=== PATIENT | male | born 1970 | race Caucasian/White ===

== ENCOUNTER 2016-05-20 16:14 | Emergency (ER) | payer OTHER ==
[~2016-05-20] VITALS: Ht 185.4 cm; Wt 115.7 kg
[2016-05-20] MEDS ORDERED: KETOROLAC 15 MG/ML VIAL. IV ONE (17:00)
[2016-05-20] MEDS ORDERED: CYCLOBENZAPRINE 10 MG TABLET. PO ONE (17:00)
[2016-05-20] MEDS ORDERED: CYCL5TAB PO (17:05)
--- NOTE | 2016-05-20 17:05 | PHYS DOC ---
Past Medical History Past Medical History: No Pertinent History Past Surgical History: No Surgical History Alcohol Use: Rarely Drug Use: None Adult General Chief Complaint Chief Complaint: CHEST PAIN-NON CARDIAC NATURE HPI HPI Patient is a 46 year old male who presents with right chest wall pain after trying to lift someone while playing. He states he felt a large spasm and achy pain to his right anterior chest. This dropped into his knees, so he called EMS. He has become asymptomatic during transport. States his pain is elicited with use of his right upper extremity or pectoralis muscles. He denies dyspnea, palpitations, diaphoresis, nausea or vomiting, abdominal pain, fever or chills. Review of Systems Review of Systems Constitutional: Denies fever or chills [] Eyes: Denies change in visual acuity, redness, or eye pain [] HENT: Denies nasal congestion or sore throat [] Respiratory: Denies cough or shortness of breath [] Cardiovascular: No additional information not addressed in HPI [] GI: Denies abdominal pain, nausea, vomiting, bloody stools or diarrhea [] : Denies dysuria or hematuria [] Musculoskeletal: Denies back pain [] Integument: Denies rash or skin lesions [] Neurologic: Denies headache, focal weakness or sensory changes [] Endocrine: Denies polyuria or polydipsia [] Current Medications Current Medications Current Medications Medications (Trade) Dose Ordered Sig/[facility] Start Time Stop Time Status Last Admin Dose Admin Cyclobenzaprine HCl (Flexeril) 5 mg 1X ONCE 05/20/16 17:00 05/20/16 17:01 DC 05/20/16 16:56 5 MG Ketorolac Tromethamine (Toradol) 15 mg 1X ONCE 05/20/16 17:00 05/20/16 17:01 DC 05/20/16 16:56 15 MG Allergies Allergies Allergies Coded Allergies Type Severity Reaction Last Updated Verified No Known Drug Allergies 11/08/15 No Physical Exam Physical Exam Constitutional: Well developed, well nourished, no acute distress, non-toxic appearance. [] HENT: Normocephalic, atraumatic, bilateral external ears normal, oropharynx moist, no oral exudates, nose normal. [] Eyes: PERRLA, EOMI. [] Neck: Normal range of motion, supple. [] Cardiovascular:Heart rate regular rhythm [] Lungs & Thorax: Bilateral breath sounds clear to auscultation. Has slight chest wall tenderness along right upper chest with no palpable or visual abnormality [] Abdomen: Bowel sounds normal, soft, no tenderness. [] Skin: Warm, dry, no erythema, no rash. [] Back: No tenderness, no CVA tenderness. [] Extremities: No tenderness, ROM intact, no edema. [] Neurologic: Alert and oriented X 3, normal motor function, normal sensory function, no focal deficits noted. [] Psychologic: Affect normal, judgement normal, mood normal. [] Current Patient Data Vital Signs Vital Signs Date Time Temp Pulse Resp B/P Pulse Ox O2 Delivery O2 Flow Rate FiO2 05/20/16 17:18 80 20 135/79 98 Room Air 05/20/16 16:21 98.2 98.2 EKG EKG EKG as interpreted by me as normal sinus rhythm, rate 90, no ST-T changes, normal intervals, PAC Course & Med Decision Making Course & Med Decision Making Symptoms consistent with musculoskeletal injury. Discussed symptomatic care. Return precautions given. He understands and agrees with plan. Dragon Disclaimer Dragon Disclaimer This electronic medical record was generated, in whole or in part, using a voice recognition dictation system. Departure Departure Impression: Primary Impression: Chest wall muscle strain Disposition: HOME, SELF-CARE Condition: STABLE Referrals: NO PCP (PCP) Patient Instructions: Muscle Strain, [id number] Additional Instructions: Take Tylenol or ibuprofen as needed for moderate pain. Take cyclobenzaprine as needed for severe pain. Do not drink, drive or operate heavy machinery after taking cyclobenzaprine as it may make you sleepy. Follow-up with your primary care doctor. Return for any concerns. Scripts Cyclobenzaprine Hcl 5 Mg Tablet1 Tab PO TID PRN MUSCLE SPASMS #10 TAB Prov:Patrick LOMBARDI MD 05/20/16 Problem Qualifiers Primary Impression: Chest wall muscle strain Encounter type: initial encounter Qualified Code: S29.011A - Strain of muscle and tendon of front wall of thorax, initial encounter Patrick LOMBARDI MD May 20, 2016 17:05
[2016-05-20 17:18] VITALS: BP 135/79
--- NOTE | 2016-05-21 06:24 | EKG ---
[facility] [address] [place] [address] Test Date: 2016-05-20 Test Time: 16:17:05 Pat Name: BARRY PEREIRA Department: Room: Gender: M Mri Ct Tech: : 1970 Requested By: Patrick LOMBARDI Order Number: [id number] Reading MD: Measurements Intervals [place] Rate: 90 P: 37 TX: 168 QRS: 31 QRSD: 86 T: 26 QT: 346 QTc: 427 Interpretive Statements SINUS RHYTHM ATRIAL PREMATURE COMPLEX(ES) RI6.01 Unconfirmed report No previous ECG available for comparison
== END 2016-05-20 17:21 | disposition home or self-care (01) ==
LOC: ER 16:14
DX: S29.011A Strain of muscle and tendon of front wall of thorax, initial encounter (principal); X58.XXXA Exposure to other specified factors, initial encounter; Y93.89 Activity, other specified; Y99.8 Other external cause status; Y92.89 Other specified places as the place of occurrence of the external cause
CPT/HCPCS: 93005; 96374; 99284; J1885